=== PATIENT | male | born 1965 | race Caucasian/White ===

== ENCOUNTER 2017-06-03 13:19 | Inpatient (IN) | payer OTHER, MEDICAID ==
[2017-06-03 15:19] LABS: WHITE BLOOD COUNT 19.4 10^3/ul (4.8-10.8)
[2017-06-03 15:19] LABS: ABNORMAL IP MESSAGE 1; HEMATOCRIT 43.6 % (42.0-52.0); HEMOGLOBIN 15.2 g/dl (14.0-18.0); MEAN CORPUSCULAR HGB CONC 34.9 g/dl (32.0-37.0); MEAN CORPUSCULAR VOLUME 94.8 fl (82.0-101.0); MEAN PLATELET VOLUME 9.6 fl (7.4-10.4); NUCLEATED RED BLOOD CELLS% 0.3 /100WBC (0.0-0.0); PLATELET COUNT 221 10^3/UL (140-415); POSITIVE DIFF @See below; RED CELL DISTRIBUTION WIDTH 14.7 % (11.5-14.5)
[2017-06-03 15:22] LABS: ADD MAN DIFF? YES
[2017-06-03] MEDS: HYDROmorphONE 1 MG/ML SYG IV ×3 (15:22→22:11)
[2017-06-03] MEDS: SOD CHLORIDE 0.9% 500 ML IV (15:22)
[2017-06-03] MEDS: IODIXANOL LOCM 100 ML BTL (15:25)
[2017-06-03] MEDS: SOD CHLORIDE 0.9% 100 ML (15:25)
[2017-06-03 15:31] LABS: INR 0.91; PROTIME 12.3 Sec (11.9-14.9)
[2017-06-03 15:32] LABS: PARTIAL THROMBOPLASTIN TIME 31.9 Sec (25.0-35.0)
[2017-06-03 15:34] LABS: ANION GAP 14 (8-16); BLOOD UREA NITROGEN 12 mg/dl (7-20); CALCIUM 9.5 mg/dl (8.4-10.2); CARBON DIOXIDE 28 mmol/L (21-31); CHLORIDE 100 mmol/L (97-110); CREATININE 0.71 mg/dl (0.61-1.24); GLUCOSE 95 mg/dl (70-220); POTASSIUM 4.2 mmol/L (3.5-5.1); SODIUM 138 mmol/L (135-144)
[2017-06-03 15:39] LABS: ANISOCYTOSIS 1+ (0-0); BAND NEUTROPHILS #M 0.5 10^3/ul (0.0-0.6); BAND NEUTROPHILS % (M) 3 % (0-4); LYMPHOCYTES #M 3.2 10^3/ul (0.8-2.9); LYMPHOCYTES % (M) 17 % (15-51); MICROCYTOSIS 1+ (0-0); MONOCYTE #M 0.1 10^3/ul (0.3-0.9); MONOCYTES % (M) 1 % (0-11); MYELOCYTES #M 0.3 10^3/ul (0.0-0.0); MYELOCYTES % (M) 2 % (0-0); PLATELET ESTIMATE NORMAL; POLYCHROMASIA 1+ (0-0); REACTIVE LYMPHOCYTES #M 0.1 10^3/ul (0.0-0.0); REACTIVE LYMPHOCYTES% (M) 1 % (0-0); SEG NEUT #M 14.8 10^3/ul (1.6-7.5); SEGMENTED NEUTROPHILS (M) % 76 % (39-77); SMUDGE%M 2 % (0-0)
[2017-06-03] MEDS: PIPER-TAZO 3.375 GM IV (PMX) 100 ML IVPB (17:23)
[2017-06-03] MEDS: VANCOMYCIN 1 GM (PMX) 250 ML IVPB (17:48)
[2017-06-03] MEDS ORDERED: DEXTROSE 5%-0.45% NACL 1,000 ML IV (19:14)
[2017-06-03] MEDS ORDERED: ALBUTEROL 0.083% (NEB) 2.5 MG/3 ML AMP NEB (19:30)
[2017-06-03] MEDS ORDERED: VANCOMYCIN IV PER PHARMACY XX (19:30)
[2017-06-03] MEDS: [UNRECOGNIZED DRUG - OTHER] PO (21:00)
[2017-06-03] MEDS: GABAPENTIN 300 MG CAP PO (21:00)
[2017-06-03] MEDS: AMITRIPTYLINE 25 MG TAB PO (21:00)
[2017-06-03] MEDS: DOCUSATE SODIUM 100 MG CAP PO (21:00)
[2017-06-03] MEDS ORDERED: ENOXAPARIN 80 MG/0.8 ML SYG SC (21:00)
[2017-06-03] MEDS: FAMOTIDINE 20 MG INJ IV (21:31)
[2017-06-03] MEDS: DEXTROSE 5%-0.45% NACL 1,000 ML IV (21:31)
[2017-06-03] MEDS: CEFEPIME 2GM/50 ML (PMX) 50 ML IVPB (21:32)
[2017-06-03] MEDS: DEXAMETHASONE 4 MG/ML 1 ML INJ IV (21:32)
[2017-06-03] MEDS: LEVETIRACETAM 1000 MG (PMX) 100 ML IVPB (22:10)
[2017-06-04] MEDS: SOD CHLORIDE 0.9% 1,000 ML IV ×2 (01:46→21:00)
[2017-06-04] MEDS: HYDROmorphONE 1 MG/ML SYG IV ×4 (02:12→20:27)
[2017-06-04] MEDS: ACETAMINOPHEN 1000MG/100ML IV 100 ML IVPB (02:57)
[2017-06-04] MEDS ORDERED: hydrALAzine 20 MG INJ IV ×2 (04:30→16:30)
[2017-06-04] MEDS: VANCOMYCIN 1 GM (PMX) 250 ML IVPB ×2 (05:52→18:00)
[2017-06-04] MEDS ORDERED: SUCCINYLCHOLINE CHLORIDE 100 MG/5 ML SYG IV (07:00)
[2017-06-04] MEDS: ALBENDAZOLE 200 MG TAB PO (08:00)
[2017-06-04] MEDS: CEFEPIME 2GM/50 ML (PMX) 50 ML IVPB (09:00)
[2017-06-04] MEDS: DEXAMETHASONE 4 MG/ML 1 ML INJ IV ×3 (09:00→20:34)
[2017-06-04] MEDS: GABAPENTIN 300 MG CAP PO ×3 (09:00→21:00)
[2017-06-04] MEDS: DOCUSATE SODIUM 100 MG CAP PO ×2 (09:00→21:00)
[2017-06-04] MEDS: [UNRECOGNIZED DRUG - OTHER] PO ×2 (09:00→13:00)
[2017-06-04] MEDS: LEVETIRACETAM 1000 MG (PMX) 100 ML IVPB ×2 (09:00→23:20)
[2017-06-04] MEDS: FAMOTIDINE 20 MG INJ IV ×2 (09:00→21:32)
[2017-06-04 09:34] LABS: ADD MAN DIFF? NO
[2017-06-04 09:40] LABS: WHITE BLOOD COUNT 20.2 10^3/ul (4.8-10.8)
[2017-06-04 09:40] LABS: ABNORMAL IP MESSAGE 1; BASOPHIL # 0.1 10^3/ul (0.0-0.1); BASOPHILS % 0.5 % (0.0-2.0); EOSINOPHILS # 0.1 10^3/ul (0.0-0.5); EOSINOPHILS % 0.4 % (0.0-7.0); HEMATOCRIT 42.5 % (42.0-52.0); HEMOGLOBIN 14.7 g/dl (14.0-18.0); LYMPHOCYTES # 2.8 10^3/ul (0.8-2.9); LYMPHOCYTES % 13.8 % (15.0-51.0); MEAN CORPUSCULAR HEMOGLOBIN 32.9 pg (29.0-33.0); MEAN CORPUSCULAR HGB CONC 34.6 g/dl (32.0-37.0); MEAN CORPUSCULAR VOLUME 95.1 fl (82.0-101.0); MONOCYTE # 1.5 10^3/ul (0.3-0.9); MONOCYTES % 7.6 % (0.0-11.0); NEUTROPHIL # 14.6 10^3/ul (1.6-7.5); NEUTROPHILS % 72.3 % (39.0-77.0); NUCLEATED RED BLOOD CELLS% 0.1 /100WBC (0.0-0.0); PLATELET COUNT 185 10^3/UL (140-415); POSITIVE DIFF @See below; RED BLOOD COUNT 4.47 10^6/ul (4.70-6.10); RED CELL DISTRIBUTION WIDTH 14.9 % (11.5-14.5)
[2017-06-04 09:58] LABS: HEMOGLOBIN A1C 5.4 % (0-5.9)
[2017-06-04 10:00] LABS: ALANINE AMINOTRANSFERASE 122 IU/L (13-69); ALBUMIN 4.2 g/dl (3.3-4.9); ALBUMIN/GLOBULIN RATIO 1.55; ALKALINE PHOSPHATASE 99 IU/L (42-121); ANION GAP 13 (8-16); ASPARTATE AMINO TRANSFERASE 42 IU/L (15-46); BILIRUBIN,INDIRECT 0.3 mg/dl (0-1.1); BILIRUBIN,TOTAL 0.3 mg/dl (0.2-1.3); BLOOD UREA NITROGEN 14 mg/dl (7-20); CALCIUM 9.7 mg/dl (8.4-10.2); CARBON DIOXIDE 26 mmol/L (21-31); CHLORIDE 100 mmol/L (97-110); CREATININE 0.76 mg/dl (0.61-1.24); GLUCOSE 80 mg/dl (70-220); MAGNESIUM 2.1 mg/dl (1.7-2.5); POTASSIUM 4.1 mmol/L (3.5-5.1); SODIUM 135 mmol/L (135-144); TOTAL PROTEIN 6.9 g/dl (6.1-8.1)
[2017-06-04 10:01] LABS: CHOL/HDL RATIO 4.3 RATIO; HDL CHOLESTEROL 40 mg/dl (28-71); LDL CHOLESTEROL,CALCULATED 83 mg/dl; TRIGLYCERIDES 259 mg/dl (0-149)
[2017-06-04 10:01] LABS: CHOLESTEROL 175 mg/dl (100-200)
[2017-06-04 10:08] LABS: PROTIME 12.2 Sec (11.9-14.9)
[2017-06-04 10:11] LABS: PARTIAL THROMBOPLASTIN TIME 24.7 Sec (25.0-35.0)
[2017-06-04 11:17] LABS: ANISOCYTOSIS 1+ (0-0); BAND NEUTROPHILS #M 0.8 10^3/ul (0.0-0.6); BAND NEUTROPHILS % (M) 4 % (0-4); EOSINOPHILS % (M) 1 % (0-7); LYMPHOCYTES #M 1.2 10^3/ul (0.8-2.9); LYMPHOCYTES % (M) 6 % (15-51); METAMYELOCYTES #M 0.4 10^3/ul (0.0-0.0); METAMYELOCYTES %M 2 % (0-0); MONOCYTE #M 0.8 10^3/ul (0.3-0.9); MONOCYTES % (M) 4 % (0-11); MYELOCYTES #M 0.2 10^3/ul (0.0-0.0); MYELOCYTES % (M) 1 % (0-0); PLATELET ESTIMATE NORMAL; POLYCHROMASIA 2+ (0-0); REACTIVE LYMPHOCYTES #M 0.8 10^3/ul (0.0-0.0); REACTIVE LYMPHOCYTES% (M) 4 % (0-0); SEG NEUT #M 15.9 10^3/ul (1.6-7.5); SEGMENTED NEUTROPHILS (M) % 78 % (39-77); SMUDGE%M 2 % (0-0)
[2017-06-04] MEDS ORDERED: PROPOFOL 20 ML (14:47)
[2017-06-04] MEDS ORDERED: FENTAnyl 50 MCG/ML VIAL ×2 (14:47→14:56)
[2017-06-04] MEDS ORDERED: LIDOCAINE 100 MG SYRINGE (14:56)
[2017-06-04] MEDS ORDERED: LIDOCAINE 1%/EPI 30 ML INJ (15:09)
[2017-06-04] MEDS ORDERED: BUPIVACAINE 0.25% (MPF) 30 ML INJ (15:09)
[2017-06-04] MEDS ORDERED: GELATIN SIZE 100 SPONGE (15:09)
[2017-06-04] MEDS ORDERED: THROMBIN 5000 UNIT VIAL (15:09)
[2017-06-04] MEDS ORDERED: BACITRACIN/POLYMYXIN 28.35 GM OINT TOP (15:09)
[2017-06-04] MEDS ORDERED: LIDOCAINE 1% (MPF) 30 ML INJ (15:09)
[2017-06-04] MEDS ORDERED: HYDROmorphONE 2 MG/ML SYG ×2 (15:59→17:09)
[2017-06-04] MEDS: BACITRACIN 50000 UNITS INJ IRR (16:20)
[2017-06-04] MEDS: NEOMYC/POLYMYX/BACIT 30 GM OINT TOP (16:20)
[2017-06-04] MEDS ORDERED: VANCOMYCIN 1 GM (PMX) 250 ML (16:25)
[2017-06-04] MEDS ORDERED: METOCLOPRAMIDE 10 MG INJ IV (16:30)
[2017-06-04] MEDS ORDERED: IPRATROPIUM (NEB) 0.5 MG/2.5 ML AMP HHN (16:30)
[2017-06-04] MEDS ORDERED: DIPHENHYDRAMINE 50 MG INJ IV (16:30)
[2017-06-04] MEDS ORDERED: PROCHLORPERAZINE 10 MG INJ IV (16:30)
[2017-06-04] MEDS ORDERED: HYDROmorphONE 0.5 MG/0.5 ML SYG IV ×2 (16:30)
[2017-06-04] MEDS ORDERED: FENTAnyl 50 MCG/ML VIAL IV ×2 (16:30)
[2017-06-04] MEDS ORDERED: MIDAZOLAM 1 MG/ML 2 ML INJ IV (16:30)
[2017-06-04] MEDS ORDERED: LABETALOL HCL 20MG INJ IV (16:30)
[2017-06-04] MEDS ORDERED: ONDANSETRON 4 MG INJ IV (16:30)
[2017-06-04] MEDS ORDERED: LORAZEPAM 2 MG INJ IV (16:30)
[2017-06-04] MEDS ORDERED: HYDROmorphONE 1 MG/ML SYG IV (16:30)
[2017-06-04] MEDS ORDERED: HALOPERIDOL 5 MG INJ IV (16:30)
[2017-06-04] MEDS ORDERED: hydrALAzine 20 MG INJ (16:43)
[2017-06-04] MEDS ORDERED: ONDANSETRON 4 MG INJ (16:43)
[2017-06-04] MEDS ORDERED: LABETALOL HCL 20MG INJ (17:08)
[2017-06-04] MEDS ORDERED: BACITRACIN 50000 UNITS INJ (18:02)
[2017-06-04] MEDS: ONDANSETRON 4 MG INJ IV ×2 (20:37→22:11)
[2017-06-04] MEDS: AMITRIPTYLINE 25 MG TAB PO (21:00)
[2017-06-04] MEDS ORDERED: VANCOMYCIN IV PER PHARMACY XX (21:00)
[2017-06-05] MEDS: PIPER-TAZO 3.375 GM IV (PMX) 100 ML IVPB ×5 (00:40→23:49)
[2017-06-05] MEDS: TRIMETHOBENZAMIDE 100 MG/ML VIAL IM (00:41)
[2017-06-05] MEDS: LORAZEPAM 2 MG INJ IV ×2 (02:22→20:22)
[2017-06-05] MEDS: HYDROmorphONE 1 MG/ML SYG IV ×2 (03:40→11:07)
[2017-06-05 05:20] LABS: ADD MAN DIFF? NO
[2017-06-05 05:31] LABS: BASOPHIL # 0.1 10^3/ul (0.0-0.1); BASOPHILS % 0.3 % (0.0-2.0); HEMATOCRIT 40.8 % (42.0-52.0); HEMOGLOBIN 14.4 g/dl (14.0-18.0); LYMPHOCYTES # 1.7 10^3/ul (0.8-2.9); MEAN CORPUSCULAR HEMOGLOBIN 33.2 pg (29.0-33.0); MEAN CORPUSCULAR HGB CONC 35.3 g/dl (32.0-37.0); MEAN PLATELET VOLUME 10.1 fl (7.4-10.4); MONOCYTES % 6.4 % (0.0-11.0); NEUTROPHIL # 12.4 10^3/ul (1.6-7.5); NEUTROPHILS % 78.2 % (39.0-77.0); PLATELET COUNT 198 10^3/UL (140-415); RED BLOOD COUNT 4.34 10^6/ul (4.70-6.10); RED CELL DISTRIBUTION WIDTH 15.1 % (11.5-14.5)
[2017-06-05 05:31] LABS: WHITE BLOOD COUNT 15.8 10^3/ul (4.8-10.8)
[2017-06-05 06:12] LABS: ANION GAP 15 (8-16); BLOOD UREA NITROGEN 9 mg/dl (7-20); CALCIUM 9.2 mg/dl (8.4-10.2); CARBON DIOXIDE 26 mmol/L (21-31); CHLORIDE 100 mmol/L (97-110); CREATININE 0.66 mg/dl (0.61-1.24); GLUCOSE 112 mg/dl (70-220); POTASSIUM 3.8 mmol/L (3.5-5.1); SODIUM 137 mmol/L (135-144)
[2017-06-05] MEDS: METOCLOPRAMIDE 10 MG INJ IV (07:04)
[2017-06-05] MEDS: VANCOMYCIN 1 GM (PMX) 250 ML IVPB ×3 (07:04→22:17)
[2017-06-05] MEDS: GABAPENTIN 300 MG CAP PO ×3 (09:00→20:13)
[2017-06-05] MEDS: DOCUSATE SODIUM 100 MG CAP PO ×2 (09:00→20:13)
[2017-06-05] MEDS: FAMOTIDINE 20 MG INJ IV ×2 (09:48→20:12)
[2017-06-05] MEDS: DEXAMETHASONE 4 MG/ML 1 ML INJ IV ×2 (09:48→20:12)
[2017-06-05] MEDS: morphine 2 MG INJ IV ×2 (09:49→13:31)
[2017-06-05] MEDS: SOD CHLORIDE 0.9% 1,000 ML IV (09:55)
[2017-06-05] MEDS: LEVETIRACETAM 1000 MG (PMX) 100 ML IVPB ×2 (10:27→20:12)
[2017-06-05] MEDS: HYDROmorphONE 2 MG/ML SYG IV ×2 (17:52→20:23)
[2017-06-05] MEDS: AMITRIPTYLINE 25 MG TAB PO (20:13)
[2017-06-06] MEDS: PIPER-TAZO 3.375 GM IV (PMX) 100 ML IVPB ×3 (05:16→18:02)
[2017-06-06] MEDS: VANCOMYCIN 1 GM (PMX) 250 ML IVPB ×2 (06:00→15:28)
[2017-06-06] MEDS: morphine 2 MG INJ IV ×2 (06:39→15:03)
[2017-06-06] MEDS: HYDROmorphONE 2 MG/ML SYG IV ×2 (07:46→10:46)
[2017-06-06] MEDS: DOCUSATE SODIUM 100 MG CAP PO ×2 (09:20→21:03)
[2017-06-06] MEDS: GABAPENTIN 300 MG CAP PO ×3 (09:20→21:03)
[2017-06-06] MEDS: DEXAMETHASONE 4 MG/ML 1 ML INJ IV ×2 (09:21→21:04)
[2017-06-06] MEDS: FAMOTIDINE 20 MG INJ IV ×2 (09:30→21:19)
[2017-06-06] MEDS: LEVETIRACETAM 1000 MG (PMX) 100 ML IVPB ×2 (09:31→21:09)
[2017-06-06] MEDS: SOD CHLORIDE 0.9% 1,000 ML IV (13:11)
[2017-06-06] MEDS: HYDROmorphONE 0.5 MG/0.5 ML SYG IV ×2 (18:03→21:04)
[2017-06-06] MEDS: AMITRIPTYLINE 25 MG TAB PO (21:03)
[2017-06-06 23:21] LABS: VANCOMYCIN,TROUGH 12.7 ug/ml (10.0-20.0)
[2017-06-07] MEDS: HYDROmorphONE 0.5 MG/0.5 ML SYG IV ×8 (00:20→23:52)
[2017-06-07] MEDS: VANCOMYCIN 1 GM (PMX) 250 ML IVPB ×4 (00:20→22:05)
[2017-06-07] MEDS: PIPER-TAZO 3.375 GM IV (PMX) 100 ML IVPB ×5 (01:00→23:52)
[2017-06-07] MEDS: morphine 2 MG INJ IV ×5 (03:10→21:59)
[2017-06-07 07:16] LABS: ADD MAN DIFF? NO
[2017-06-07 07:23] LABS: WHITE BLOOD COUNT 11.6 10^3/ul (4.8-10.8)
[2017-06-07 07:23] LABS: BASOPHILS % 0.3 % (0.0-2.0); EOSINOPHILS # 0.1 10^3/ul (0.0-0.5); HEMOGLOBIN 13.4 g/dl (14.0-18.0); LYMPHOCYTES # 1.9 10^3/ul (0.8-2.9); LYMPHOCYTES % 16.1 % (15.0-51.0); MEAN CORPUSCULAR HEMOGLOBIN 32.7 pg (29.0-33.0); MEAN CORPUSCULAR HGB CONC 34.4 g/dl (32.0-37.0); MEAN CORPUSCULAR VOLUME 95.1 fl (82.0-101.0); MEAN PLATELET VOLUME 10.1 fl (7.4-10.4); MONOCYTES % 8.3 % (0.0-11.0); NEUTROPHIL # 8.5 10^3/ul (1.6-7.5); NEUTROPHILS % 72.9 % (39.0-77.0); PLATELET COUNT 173 10^3/UL (140-415); RED CELL DISTRIBUTION WIDTH 14.9 % (11.5-14.5)
[2017-06-07 07:55] LABS: ANION GAP 14 (8-16); BLOOD UREA NITROGEN 14 mg/dl (7-20); CALCIUM 9.3 mg/dl (8.4-10.2); CARBON DIOXIDE 26 mmol/L (21-31); CHLORIDE 103 mmol/L (97-110); CREATININE 0.75 mg/dl (0.61-1.24); GLUCOSE 107 mg/dl (70-220); POTASSIUM 3.6 mmol/L (3.5-5.1); SODIUM 139 mmol/L (135-144)
[2017-06-07] MEDS: DOCUSATE SODIUM 100 MG CAP PO ×2 (08:26→20:22)
[2017-06-07] MEDS: GABAPENTIN 300 MG CAP PO ×3 (08:26→20:22)
[2017-06-07] MEDS: DEXAMETHASONE 4 MG/ML 1 ML INJ IV ×2 (08:27→20:22)
[2017-06-07] MEDS: FAMOTIDINE 20 MG INJ IV ×2 (08:27→20:21)
[2017-06-07] MEDS: SOD CHLORIDE 0.9% 1,000 ML IV (08:28)
[2017-06-07] MEDS: LEVETIRACETAM 1000 MG (PMX) 100 ML IVPB ×2 (08:29→20:21)
[2017-06-07] MEDS: AMITRIPTYLINE 25 MG TAB PO (20:21)
[2017-06-08] MEDS: morphine 2 MG INJ IV ×5 (02:46→21:16)
[2017-06-08] MEDS: PIPER-TAZO 3.375 GM IV (PMX) 100 ML IVPB ×2 (05:16→12:03)
[2017-06-08] MEDS: SOD CHLORIDE 0.9% 1,000 ML IV (05:19)
[2017-06-08] MEDS: HYDROmorphONE 0.5 MG/0.5 ML SYG IV ×5 (05:35→22:08)
[2017-06-08] MEDS: VANCOMYCIN 1 GM (PMX) 250 ML IVPB ×3 (06:10→22:22)
[2017-06-08] MEDS: DEXAMETHASONE 4 MG/ML 1 ML INJ IV ×2 (08:54→21:05)
[2017-06-08] MEDS: LEVETIRACETAM 1000 MG (PMX) 100 ML IVPB ×2 (08:54→21:04)
[2017-06-08] MEDS: FAMOTIDINE 20 MG INJ IV ×2 (08:54→21:05)
[2017-06-08] MEDS: DOCUSATE SODIUM 100 MG CAP PO ×2 (08:54→21:04)
[2017-06-08] MEDS: GABAPENTIN 300 MG CAP PO ×3 (08:54→21:04)
[2017-06-08] MEDS: LORAZEPAM 2 MG INJ IV (09:49)
[2017-06-08] MEDS: LEVOFLOXACIN 500MG/D5W (PMX) 100 ML IVPB (14:51)
[2017-06-08] MEDS: AMITRIPTYLINE 25 MG TAB PO (21:04)
[2017-06-09] MEDS: HYDROmorphONE 0.5 MG/0.5 ML SYG IV ×6 (00:29→22:48)
[2017-06-09] MEDS: LORAZEPAM 2 MG INJ IV (00:53)
[2017-06-09] MEDS: SOD CHLORIDE 0.9% 1,000 ML IV ×2 (01:00→14:25)
[2017-06-09] MEDS: VANCOMYCIN 1 GM (PMX) 250 ML IVPB ×2 (06:15→16:06)
[2017-06-09 06:25] LABS: ADD MAN DIFF? NO
[2017-06-09 06:51] LABS: BASOPHILS % 0.3 % (0.0-2.0); EOSINOPHILS # 0.1 10^3/ul (0.0-0.5); EOSINOPHILS % 0.7 % (0.0-7.0); HEMATOCRIT 38.1 % (42.0-52.0); HEMOGLOBIN 13.2 g/dl (14.0-18.0); LYMPHOCYTES # 2.7 10^3/ul (0.8-2.9); LYMPHOCYTES % 26.2 % (15.0-51.0); MEAN CORPUSCULAR HGB CONC 34.6 g/dl (32.0-37.0); MEAN CORPUSCULAR VOLUME 95.3 fl (82.0-101.0); MEAN PLATELET VOLUME 10.1 fl (7.4-10.4); MONOCYTE # 0.8 10^3/ul (0.3-0.9); MONOCYTES % 7.4 % (0.0-11.0); NEUTROPHIL # 6.7 10^3/ul (1.6-7.5); NEUTROPHILS % 64.4 % (39.0-77.0); PLATELET COUNT 184 10^3/UL (140-415); RED CELL DISTRIBUTION WIDTH 14.5 % (11.5-14.5)
[2017-06-09 06:51] LABS: WHITE BLOOD COUNT 10.3 10^3/ul (4.8-10.8)
[2017-06-09 07:01] LABS: ANION GAP 13 (8-16); BLOOD UREA NITROGEN 10 mg/dl (7-20); CALCIUM 9.1 mg/dl (8.4-10.2); CARBON DIOXIDE 27 mmol/L (21-31); CHLORIDE 103 mmol/L (97-110); CREATININE 0.67 mg/dl (0.61-1.24); GLUCOSE 119 mg/dl (70-220); POTASSIUM 3.7 mmol/L (3.5-5.1); SODIUM 139 mmol/L (135-144)
[2017-06-09 07:12] LABS: BLOOD UREA NITROGEN 10 mg/dl (7-20)
[2017-06-09] MEDS: morphine 2 MG INJ IV ×2 (07:32→11:55)
[2017-06-09] MEDS: DEXAMETHASONE 4 MG/ML 1 ML INJ IV ×2 (08:21→20:44)
[2017-06-09] MEDS: FAMOTIDINE 20 MG INJ IV ×2 (08:21→20:44)
[2017-06-09] MEDS: LEVETIRACETAM 1000 MG (PMX) 100 ML IVPB ×2 (08:21→20:44)
[2017-06-09] MEDS: GABAPENTIN 300 MG CAP PO ×3 (08:21→20:44)
[2017-06-09] MEDS: DOCUSATE SODIUM 100 MG CAP PO ×2 (08:21→20:44)
[2017-06-09] MEDS: LEVOFLOXACIN 500MG/D5W (PMX) 100 ML IVPB (14:25)
[2017-06-09 14:56] LABS: VANCOMYCIN,TROUGH 11.3 ug/ml (10.0-20.0)
[2017-06-09] MEDS: morphine LIQ (10 MG/5 ML) CUP PO (17:33)
[2017-06-09] MEDS: AMITRIPTYLINE 25 MG TAB PO (20:44)
[2017-06-09] MEDS: VANCOMYCIN 1.25 GM in SOD CHLORIDE 0.9% 250 ML IVPB (23:00)
[2017-06-10] MEDS: HYDROmorphONE 0.5 MG/0.5 ML SYG IV ×4 (01:01→20:43)
[2017-06-10 06:24] LABS: ADD MAN DIFF? NO; BASOPHILS % 0.3 % (0.0-2.0); EOSINOPHILS % 0.4 % (0.0-7.0); HEMATOCRIT 37.2 % (42.0-52.0); HEMOGLOBIN 13.2 g/dl (14.0-18.0); LYMPHOCYTES # 2.9 10^3/ul (0.8-2.9); LYMPHOCYTES % 25.9 % (15.0-51.0); MEAN CORPUSCULAR HEMOGLOBIN 33.6 pg (29.0-33.0); MEAN CORPUSCULAR HGB CONC 35.5 g/dl (32.0-37.0); MEAN CORPUSCULAR VOLUME 94.7 fl (82.0-101.0); MEAN PLATELET VOLUME 9.8 fl (7.4-10.4); MONOCYTE # 0.7 10^3/ul (0.3-0.9); MONOCYTES % 6.4 % (0.0-11.0); NEUTROPHIL # 7.4 10^3/ul (1.6-7.5); NEUTROPHILS % 65.5 % (39.0-77.0); PLATELET COUNT 189 10^3/UL (140-415); RED BLOOD COUNT 3.93 10^6/ul (4.70-6.10); RED CELL DISTRIBUTION WIDTH 14.7 % (11.5-14.5)
[2017-06-10 06:24] LABS: WHITE BLOOD COUNT 11.3 10^3/ul (4.8-10.8)
[2017-06-10] MEDS: LEVETIRACETAM 1000 MG (PMX) 100 ML IVPB (08:21)
[2017-06-10] MEDS: VANCOMYCIN 1.25 GM in SOD CHLORIDE 0.9% 250 ML IVPB ×2 (08:25→15:52)
[2017-06-10] MEDS: FAMOTIDINE 20 MG INJ IV ×2 (08:25→20:43)
[2017-06-10] MEDS: DOCUSATE SODIUM 100 MG CAP PO ×2 (08:25→20:39)
[2017-06-10] MEDS: GABAPENTIN 300 MG CAP PO ×3 (08:25→20:39)
[2017-06-10] MEDS: DEXAMETHASONE 4 MG/ML 1 ML INJ IV ×2 (08:26→20:39)
[2017-06-10] MEDS: LEVOFLOXACIN 500MG/D5W (PMX) 100 ML IVPB (14:16)
[2017-06-10] MEDS: SOD CHLORIDE 0.9% 1,000 ML IV (17:00)
[2017-06-10] MEDS: LEVETIRACETAM 500 MG TAB PO (20:39)
[2017-06-10] MEDS: AMITRIPTYLINE 25 MG TAB PO (20:39)
[2017-06-11] MEDS: VANCOMYCIN 1.25 GM in SOD CHLORIDE 0.9% 250 ML IVPB ×3 (00:02→16:43)
[2017-06-11] MEDS: HYDROmorphONE 0.5 MG/0.5 ML SYG IV ×5 (00:02→19:50)
[2017-06-11] MEDS: LORAZEPAM 2 MG INJ IV (00:49)
[2017-06-11 06:47] LABS: ADD MAN DIFF? NO
[2017-06-11 06:50] LABS: WHITE BLOOD COUNT 13.4 10^3/ul (4.8-10.8)
[2017-06-11 06:50] LABS: BASOPHIL # 0.1 10^3/ul (0.0-0.1); BASOPHILS % 0.4 % (0.0-2.0); EOSINOPHILS % 0.1 % (0.0-7.0); HEMOGLOBIN 13.5 g/dl (14.0-18.0); LYMPHOCYTES # 2.9 10^3/ul (0.8-2.9); LYMPHOCYTES % 21.5 % (15.0-51.0); MEAN CORPUSCULAR HEMOGLOBIN 33.6 pg (29.0-33.0); MEAN CORPUSCULAR HGB CONC 35.5 g/dl (32.0-37.0); MEAN CORPUSCULAR VOLUME 94.5 fl (82.0-101.0); MEAN PLATELET VOLUME 9.6 fl (7.4-10.4); MONOCYTE # 0.7 10^3/ul (0.3-0.9); MONOCYTES % 5.3 % (0.0-11.0); NEUTROPHIL # 9.4 10^3/ul (1.6-7.5); NEUTROPHILS % 70.3 % (39.0-77.0); PLATELET COUNT 207 10^3/UL (140-415); RED BLOOD COUNT 4.02 10^6/ul (4.70-6.10); RED CELL DISTRIBUTION WIDTH 14.6 % (11.5-14.5)
[2017-06-11 07:20] LABS: VANCOMYCIN,TROUGH 16.5 ug/ml (10.0-20.0)
[2017-06-11 07:23] LABS: ANION GAP 12 (8-16); BLOOD UREA NITROGEN 11 mg/dl (7-20); CALCIUM 9.6 mg/dl (8.4-10.2); CARBON DIOXIDE 26 mmol/L (21-31); CHLORIDE 102 mmol/L (97-110); CREATININE 0.62 mg/dl (0.61-1.24); GLUCOSE 102 mg/dl (70-220); MAGNESIUM 1.9 mg/dl (1.7-2.5); PHOSPHORUS 4.5 mg/dl (2.5-4.9); POTASSIUM 3.8 mmol/L (3.5-5.1); SODIUM 136 mmol/L (135-144)
[2017-06-11] MEDS: FAMOTIDINE 20 MG INJ IV ×2 (09:28→20:00)
[2017-06-11] MEDS: LEVETIRACETAM 500 MG TAB PO ×2 (09:28→20:00)
[2017-06-11] MEDS: DOCUSATE SODIUM 100 MG CAP PO ×2 (09:28→20:00)
[2017-06-11] MEDS: DEXAMETHASONE 4 MG/ML 1 ML INJ IV ×2 (09:30→20:00)
[2017-06-11] MEDS: GABAPENTIN 300 MG CAP PO ×3 (09:40→20:00)
[2017-06-11 11:54] LABS: ERYTHROCYTE SEDIMENTATION RATE 9 mm/Hr (0-15)
[2017-06-11] MEDS: SOD CHLORIDE 0.9% 1,000 ML IV (13:00)
[2017-06-11] MEDS: LEVOFLOXACIN 500MG/D5W (PMX) 100 ML IVPB (14:44)
[2017-06-11] MEDS: morphine LIQ (10 MG/5 ML) CUP PO (16:41)
[2017-06-11] MEDS: AMITRIPTYLINE 25 MG TAB PO (20:00)
== END 2017-06-11 22:10 | disposition home health service (06) | DRG 856 ==
LOC: TEL 06-07 00:08 → E/R 13:19 → REC 19:16 → ICU 06-04 17:35
PROC: 00930ZX Drainage of Intracranial Epidural Space, Open Approach, Diagnostic (ICD-10-PCS; principal; 2017-06-04 15:30)
PROC: 06H03DZ Insertion of Intraluminal Device into Inferior Vena Cava, Percutaneous Approach (ICD-10-PCS; 2017-06-04 15:35)
DX: T81.4XXA Infection following a procedure, initial encounter (principal); I26.99 Other pulmonary embolism without acute cor pulmonale; G93.6 Cerebral edema; G06.0 Intracranial abscess and granuloma; T81.32XA Disruption of internal operation (surgical) wound, not elsewhere classified, initial encounter; C71.8 Malignant neoplasm of overlapping sites of brain; R47.01 Aphasia; R56.9 Unspecified convulsions; Y83.8 Other surgical procedures as the cause of abnormal reaction of the patient, or of later complication, without mention of misadventure at the time of the procedure; Y92.238 Other place in hospital as the place of occurrence of the external cause
CPT/HCPCS: 36415; 70450; 70470; 70553; 80048; 80053; 80061; 80202; 83036; 83735; 84100; 84443; 84520; 85025; 85610; 85651; 85730; 86850; 86900; 86901; 87070; 87081; 87102; 87116; 96374; 96375; 96376; 97110; 97116; 97161; 97530; 99291-25

== ENCOUNTER 2017-06-27 21:52 | Inpatient (IN) | payer OTHER ==
[2017-06-28] MEDS: SOD CHLORIDE 0.9% 500 ML IV (03:23)
[2017-06-28 04:11] LABS: ABNORMAL IP MESSAGE 1; HEMATOCRIT 43.8 % (42.0-52.0); HEMOGLOBIN 15.2 g/dl (14.0-18.0); MEAN CORPUSCULAR HEMOGLOBIN 33.6 pg (29.0-33.0); MEAN CORPUSCULAR HGB CONC 34.7 g/dl (32.0-37.0); MEAN CORPUSCULAR VOLUME 96.7 fl (82.0-101.0); MEAN PLATELET VOLUME 9.5 fl (7.4-10.4); NUCLEATED RED BLOOD CELLS% 0.1 /100WBC (0.0-0.0); PLATELET COUNT 122 10^3/UL (140-415); POSITIVE DIFF @See below; RED BLOOD COUNT 4.53 10^6/ul (4.70-6.10); RED CELL DISTRIBUTION WIDTH 14.5 % (11.5-14.5)
[2017-06-28 04:11] LABS: WHITE BLOOD COUNT 16.3 10^3/ul (4.8-10.8)
[2017-06-28 04:15] LABS: ADD MAN DIFF? YES
[2017-06-28 04:30] LABS: INR 0.92; PROTIME 12.4 Sec (11.9-14.9)
[2017-06-28 04:31] LABS: PARTIAL THROMBOPLASTIN TIME 22.4 Sec (25.0-35.0)
[2017-06-28 04:34] LABS: ALANINE AMINOTRANSFERASE 94 IU/L (13-69); ALBUMIN/GLOBULIN RATIO 1.73; ALKALINE PHOSPHATASE 107 IU/L (42-121); ANION GAP 17 (8-16); ASPARTATE AMINO TRANSFERASE 57 IU/L (15-46); BILIRUBIN,INDIRECT 0.3 mg/dl (0-1.1); BILIRUBIN,TOTAL 0.3 mg/dl (0.2-1.3); BLOOD UREA NITROGEN 19 mg/dl (7-20); CALCIUM 9.5 mg/dl (8.4-10.2); CARBON DIOXIDE 27 mmol/L (21-31); CHLORIDE 98 mmol/L (97-110); CREATININE 0.56 mg/dl (0.61-1.24); GLUCOSE 101 mg/dl (70-220); POTASSIUM 4.6 mmol/L (3.5-5.1); SODIUM 137 mmol/L (135-144); TOTAL PROTEIN 6.3 g/dl (6.1-8.1)
[2017-06-28 04:36] LABS: AMMONIA 11 umol/l (9-30)
[2017-06-28 04:38] LABS: ACETAMINOPHEN < 10.0 ug/ml (10.0-30.0); ETHANOL < 10.0 mg/dl; SALICYLATE < 1.0 mg/dl (5.0-30.0)
[2017-06-28 05:11] LABS: ANISOCYTOSIS 2+ (0-0); BAND NEUTROPHILS #M 1.7 10^3/ul (0.0-0.6); BAND NEUTROPHILS % (M) 11 % (0-4); EOSINOPHILS % (M) 1 % (0-7); LYMPHOCYTES #M 1.7 10^3/ul (0.8-2.9); LYMPHOCYTES % (M) 11 % (15-51); MICROCYTOSIS 2+ (0-0); MONOCYTE #M 0.3 10^3/ul (0.3-0.9); MONOCYTES % (M) 2 % (0-11); MYELOCYTES #M 0.4 10^3/ul (0.0-0.0); MYELOCYTES % (M) 3 % (0-0); PLATELET ESTIMATE DECREASED; POLYCHROMASIA 3+ (0-0); SEGMENTED NEUTROPHILS (M) % 72 % (39-77); SMUDGE%M 4 % (0-0)
[2017-06-28] MEDS: ONDANSETRON 4 MG INJ IV ×2 (05:12→07:51)
[2017-06-28] MEDS: morphine 4 MG/ML VIAL IV (05:12)
[2017-06-28 05:33] LABS: ADD UMIC YES; UR ASCORBIC ACID 20 mg/dL (NEGATIVE); UR BILIRUBIN (Dip) NEGATIVE (NEGATIVE); UR BLOOD (Dip) 1+ mg/dL (NEGATIVE); UR CLARITY CLEAR (CLEAR); UR COLOR YELLOW (YELLOW); UR GLUCOSE (Dip) NEGATIVE (NEGATIVE); UR KETONES (Dip) NEGATIVE (NEGATIVE); UR LEUKOCYTE ESTERASE (Dip) NEGATIVE Leu/ul (NEGATIVE); UR NITRITE (Dip) NEGATIVE (NEGATIVE); UR RBC 4 /HPF (0-5); UR SPECIFIC GRAVITY (Dip) 1.009 (1.003-1.030); UR TOTAL PROTEIN (Dip) NEGATIVE (NEGATIVE); UR UROBILINOGEN (Dip) NEGATIVE (NEGATIVE); UR WBC 1 /HPF (0-5)
[2017-06-28 05:49] LABS: AMPHETAMINE/METHAMPHETAMINE Negative (NEGATIVE); BARBITURATES Negative (NEGATIVE); BENZODIAZEPINES Negative (NEGATIVE); CANNABINOIDS Negative (NEGATIVE); COCAINE Negative (NEGATIVE); OPIATES Negative (NEGATIVE)
[2017-06-28] MEDS ORDERED: NACL 0.9% 3 ML SYG IV (07:00)
[2017-06-28] MEDS: LEVOFLOXACIN 750MG/D5W (PMX) 150 ML IVPB ×2 (07:50→13:03)
[2017-06-28] MEDS: SOD CHLORIDE 0.9% 1,000 ML IV ×2 (07:50→23:31)
[2017-06-28] MEDS: HYDROmorphONE 0.5 MG/0.5 ML SYG IV (07:51)
[2017-06-28] MEDS: HYDROmorphONE 1 MG/ML SYG IV (07:51)
[2017-06-28] MEDS: VANCOMYCIN 1 GM (PMX) 250 ML IVPB (10:08)
[2017-06-28] MEDS ORDERED: VANCOMYCIN IV PER PHARMACY XX (12:00)
[2017-06-28] MEDS: GABAPENTIN 300 MG CAP PO ×2 (12:46→20:47)
[2017-06-28] MEDS: MAGNESIUM OXIDE 400 MG TAB PO ×2 (12:46→20:47)
[2017-06-28] MEDS: MULTIVITAMINS THERAPEUTIC TAB PO (12:46)
[2017-06-28] MEDS: LEVETIRACETAM 500 MG TAB PO ×2 (12:47→20:47)
[2017-06-28] MEDS: DOCUSATE SODIUM 100 MG CAP PO ×2 (12:48→20:47)
[2017-06-28] MEDS: morphine 2 MG INJ IV ×2 (14:02→21:08)
[2017-06-28] MEDS: ACETAMINOPHEN 325 MG TAB PO (14:08)
[2017-06-28] MEDS: VANCOMYCIN 1.25 GM in SOD CHLORIDE 0.9% 250 ML IVPB (18:15)
[2017-06-28] MEDS: DEXAMETHASONE 1 MG TAB PO (20:00)
[2017-06-28] MEDS: ENOXAPARIN 80 MG/0.8 ML SYG SC (20:48)
[2017-06-29] MEDS: morphine 2 MG INJ IV ×3 (01:06→09:43)
[2017-06-29] MEDS: ZOLPIDEM 5 MG TAB PO (01:53)
[2017-06-29] MEDS: VANCOMYCIN 1.25 GM in SOD CHLORIDE 0.9% 250 ML IVPB ×2 (02:00→10:46)
[2017-06-29 06:45] LABS: WHITE BLOOD COUNT 10.3 10^3/ul (4.8-10.8)
[2017-06-29 06:45] LABS: ABNORMAL IP MESSAGE 1; HEMATOCRIT 43.3 % (42.0-52.0); HEMOGLOBIN 14.5 g/dl (14.0-18.0); MEAN CORPUSCULAR HEMOGLOBIN 33.5 pg (29.0-33.0); MEAN CORPUSCULAR HGB CONC 33.5 g/dl (32.0-37.0); MEAN PLATELET VOLUME 9.1 fl (7.4-10.4); PLATELET COUNT 102 10^3/UL (140-415); POSITIVE DIFF @See below; RED BLOOD COUNT 4.33 10^6/ul (4.70-6.10); RED CELL DISTRIBUTION WIDTH 14.4 % (11.5-14.5)
[2017-06-29 07:07] LABS: ADD MAN DIFF? YES
[2017-06-29 07:18] LABS: ALBUMIN/GLOBULIN RATIO 1.41; ANION GAP 15 (8-16)
[2017-06-29 07:24] LABS: ALANINE AMINOTRANSFERASE 129 IU/L (13-69); ALBUMIN 3.4 g/dl (3.3-4.9); ALKALINE PHOSPHATASE 87 IU/L (42-121); ASPARTATE AMINO TRANSFERASE 55 IU/L (15-46); BILIRUBIN,INDIRECT 0.4 mg/dl (0-1.1); BILIRUBIN,TOTAL 0.4 mg/dl (0.2-1.3); BLOOD UREA NITROGEN 18 mg/dl (7-20); CALCIUM 8.7 mg/dl (8.4-10.2); CARBON DIOXIDE 27 mmol/L (21-31); CHLORIDE 99 mmol/L (97-110); GLUCOSE 104 mg/dl (70-220); MAGNESIUM 2.2 mg/dl (1.7-2.5); POTASSIUM 4.1 mmol/L (3.5-5.1); SODIUM 137 mmol/L (135-144); TOTAL PROTEIN 5.8 g/dl (6.1-8.1)
[2017-06-29] MEDS: MULTIVITAMINS THERAPEUTIC TAB PO (08:16)
[2017-06-29] MEDS: DEXAMETHASONE 1 MG TAB PO ×2 (08:16→17:52)
[2017-06-29] MEDS: LEVETIRACETAM 500 MG TAB PO ×2 (08:16→21:33)
[2017-06-29] MEDS: MAGNESIUM OXIDE 400 MG TAB PO ×2 (08:16→21:34)
[2017-06-29] MEDS: DOCUSATE SODIUM 100 MG CAP PO ×2 (08:16→21:34)
[2017-06-29] MEDS: GABAPENTIN 300 MG CAP PO ×3 (08:16→21:34)
[2017-06-29] MEDS: ENOXAPARIN 80 MG/0.8 ML SYG SC ×2 (08:33→21:55)
[2017-06-29 09:29] LABS: ANISOCYTOSIS 1+ (0-0); BAND NEUTROPHILS #M 1.1 10^3/ul (0.0-0.6); BAND NEUTROPHILS % (M) 11 % (0-4); LYMPHOCYTES #M 2.2 10^3/ul (0.8-2.9); LYMPHOCYTES % (M) 22 % (15-51); METAMYELOCYTES #M 0.1 10^3/ul (0.0-0.0); METAMYELOCYTES %M 1 % (0-0); MICROCYTOSIS 1+ (0-0); MONOCYTE #M 0.1 10^3/ul (0.3-0.9); MONOCYTES % (M) 1 % (0-11); PLATELET ESTIMATE NORMAL; POLYCHROMASIA 2+ (0-0); REACTIVE LYMPHOCYTES #M 0.1 10^3/ul (0.0-0.0); REACTIVE LYMPHOCYTES% (M) 1 % (0-0); SEG NEUT #M 6.7 10^3/ul (1.6-7.5); SEGMENTED NEUTROPHILS (M) % 64 % (39-77); SMUDGE%M 9 % (0-0)
[2017-06-29] MEDS: POLYETHYLENE GLYCOL 17 GM PACKET PO (15:26)
[2017-06-29] MEDS: HYDROmorphONE 0.5 MG/0.5 ML SYG IV ×2 (15:26→20:19)
[2017-06-29] MEDS: SOD CHLORIDE 0.9% 1,000 ML IV (15:30)
[2017-06-30] MEDS: HYDROmorphONE 0.5 MG/0.5 ML SYG IV ×6 (00:08→22:08)
[2017-06-30] MEDS: ZOLPIDEM 5 MG TAB PO ×2 (00:08→23:39)
[2017-06-30 07:34] LABS: ADD MAN DIFF? NO
[2017-06-30 07:43] LABS: WHITE BLOOD COUNT 14.2 10^3/ul (4.8-10.8)
[2017-06-30 07:43] LABS: BASOPHILS % 0.2 % (0.0-2.0); EOSINOPHILS % 0.1 % (0.0-7.0); HEMATOCRIT 43.1 % (42.0-52.0); HEMOGLOBIN 14.9 g/dl (14.0-18.0); LYMPHOCYTES # 2.1 10^3/ul (0.8-2.9); LYMPHOCYTES % 14.6 % (15.0-51.0); MEAN CORPUSCULAR HEMOGLOBIN 33.8 pg (29.0-33.0); MEAN CORPUSCULAR HGB CONC 34.6 g/dl (32.0-37.0); MEAN CORPUSCULAR VOLUME 97.7 fl (82.0-101.0); MEAN PLATELET VOLUME 9.6 fl (7.4-10.4); MONOCYTE # 0.7 10^3/ul (0.3-0.9); MONOCYTES % 4.7 % (0.0-11.0); NEUTROPHIL # 10.7 10^3/ul (1.6-7.5); NEUTROPHILS % 75.4 % (39.0-77.0); PLATELET COUNT 109 10^3/UL (140-415); RED BLOOD COUNT 4.41 10^6/ul (4.70-6.10); RED CELL DISTRIBUTION WIDTH 14.1 % (11.5-14.5)
[2017-06-30 07:58] LABS: ANION GAP 15 (8-16); BLOOD UREA NITROGEN 14 mg/dl (7-20); CALCIUM 9.2 mg/dl (8.4-10.2); CARBON DIOXIDE 26 mmol/L (21-31); CHLORIDE 98 mmol/L (97-110); CREATININE 0.64 mg/dl (0.61-1.24); GLUCOSE 89 mg/dl (70-220); POTASSIUM 3.9 mmol/L (3.5-5.1); SODIUM 135 mmol/L (135-144)
[2017-06-30] MEDS: SOD CHLORIDE 0.9% 1,000 ML IV (08:51)
[2017-06-30] MEDS: POLYETHYLENE GLYCOL 17 GM PACKET PO (08:52)
[2017-06-30] MEDS: MULTIVITAMINS THERAPEUTIC TAB PO (08:53)
[2017-06-30] MEDS: MAGNESIUM OXIDE 400 MG TAB PO ×2 (08:54→21:49)
[2017-06-30] MEDS: DEXAMETHASONE 1 MG TAB PO (08:54)
[2017-06-30] MEDS: DOCUSATE SODIUM 100 MG CAP PO ×2 (08:54→21:49)
[2017-06-30] MEDS: LEVETIRACETAM 500 MG TAB PO ×2 (08:54→21:48)
[2017-06-30] MEDS: GABAPENTIN 300 MG CAP PO ×3 (08:54→21:49)
[2017-06-30] MEDS: ENOXAPARIN 80 MG/0.8 ML SYG SC ×2 (09:33→21:51)
[2017-06-30] MEDS: DEXAMETHASONE 2 MG TAB PO (21:49)
[2017-07-01] MEDS: SOD CHLORIDE 0.9% 1,000 ML IV ×3 (01:31→18:11)
[2017-07-01] MEDS: LEVOFLOXACIN 250 MG TAB PO ×2 (05:10→05:17)
[2017-07-01] MEDS: HYDROmorphONE 0.5 MG/0.5 ML SYG IV ×3 (05:11→12:17)
[2017-07-01] MEDS: DOCUSATE SODIUM 100 MG CAP PO ×2 (08:29→20:41)
[2017-07-01] MEDS: GABAPENTIN 300 MG CAP PO ×3 (08:30→20:41)
[2017-07-01] MEDS: LEVETIRACETAM 500 MG TAB PO ×2 (08:30→20:41)
[2017-07-01] MEDS: MULTIVITAMINS THERAPEUTIC TAB PO (08:30)
[2017-07-01] MEDS: POLYETHYLENE GLYCOL 17 GM PACKET PO (08:31)
[2017-07-01] MEDS: DEXAMETHASONE 2 MG TAB PO ×3 (08:31→20:41)
[2017-07-01] MEDS: MAGNESIUM OXIDE 400 MG TAB PO ×2 (08:31→20:41)
[2017-07-01] MEDS: ENOXAPARIN 80 MG/0.8 ML SYG SC ×2 (08:40→20:45)
[2017-07-01] MEDS: HYDROCODONE/APAP (5/325) TAB PO ×2 (16:04→23:26)
[2017-07-01] MEDS: ONDANSETRON 4 MG INJ IV (22:20)
[2017-07-02] MEDS: HYDROCODONE/APAP (5/325) TAB PO ×2 (07:23→19:33)
[2017-07-02] MEDS: LEVOFLOXACIN 250 MG TAB PO (07:23)
[2017-07-02] MEDS: DOCUSATE SODIUM 100 MG CAP PO ×2 (08:22→20:56)
[2017-07-02] MEDS: LEVETIRACETAM 500 MG TAB PO ×2 (08:22→20:56)
[2017-07-02] MEDS: MULTIVITAMINS THERAPEUTIC TAB PO (08:22)
[2017-07-02] MEDS: POLYETHYLENE GLYCOL 17 GM PACKET PO (08:23)
[2017-07-02] MEDS: MAGNESIUM OXIDE 400 MG TAB PO ×2 (08:23→20:56)
[2017-07-02] MEDS: GABAPENTIN 300 MG CAP PO ×3 (08:23→20:56)
[2017-07-02] MEDS: DEXAMETHASONE 2 MG TAB PO ×3 (08:23→20:56)
[2017-07-02] MEDS: ENOXAPARIN 80 MG/0.8 ML SYG SC ×2 (08:44→20:54)
[2017-07-02 09:22] LABS: ADD MAN DIFF? NO
[2017-07-02 09:28] LABS: ABNORMAL IP MESSAGE 1; BASOPHILS % 0.2 % (0.0-2.0); EOSINOPHILS % 0.1 % (0.0-7.0); HEMATOCRIT 41.6 % (42.0-52.0); LYMPHOCYTES # 2.1 10^3/ul (0.8-2.9); LYMPHOCYTES % 18.7 % (15.0-51.0); MEAN CORPUSCULAR HEMOGLOBIN 33.6 pg (29.0-33.0); MEAN CORPUSCULAR HGB CONC 33.7 g/dl (32.0-37.0); MEAN CORPUSCULAR VOLUME 99.8 fl (82.0-101.0); MEAN PLATELET VOLUME 9.5 fl (7.4-10.4); MONOCYTE # 0.6 10^3/ul (0.3-0.9); MONOCYTES % 5.3 % (0.0-11.0); NEUTROPHIL # 7.8 10^3/ul (1.6-7.5); NEUTROPHILS % 70.9 % (39.0-77.0); PLATELET COUNT 98 10^3/UL (140-415); POSITIVE DIFF @See below; RED BLOOD COUNT 4.17 10^6/ul (4.70-6.10); RED CELL DISTRIBUTION WIDTH 14.1 % (11.5-14.5)
[2017-07-02 09:51] LABS: ALANINE AMINOTRANSFERASE 77 IU/L (13-69); ALBUMIN 3.4 g/dl (3.3-4.9); ALBUMIN/GLOBULIN RATIO 1.54; ALKALINE PHOSPHATASE 112 IU/L (42-121); ANION GAP 13 (8-16); ASPARTATE AMINO TRANSFERASE 23 IU/L (15-46); BILIRUBIN,INDIRECT 0.3 mg/dl (0-1.1); BILIRUBIN,TOTAL 0.3 mg/dl (0.2-1.3); BLOOD UREA NITROGEN 12 mg/dl (7-20); CALCIUM 8.8 mg/dl (8.4-10.2); CARBON DIOXIDE 30 mmol/L (21-31); CHLORIDE 101 mmol/L (97-110); GLUCOSE 84 mg/dl (70-220); POTASSIUM 4.2 mmol/L (3.5-5.1); SODIUM 140 mmol/L (135-144); TOTAL PROTEIN 5.6 g/dl (6.1-8.1)
[2017-07-02] MEDS: SOD CHLORIDE 0.9% 1,000 ML IV (12:17)
[2017-07-02] MEDS: ZOLPIDEM 5 MG TAB PO (23:21)
[2017-07-03] MEDS: SOD CHLORIDE 0.9% 1,000 ML IV ×2 (03:31→13:01)
[2017-07-03] MEDS: HYDROCODONE/APAP (5/325) TAB PO ×4 (05:45→15:04)
[2017-07-03] MEDS: LEVOFLOXACIN 250 MG TAB PO (06:00)
[2017-07-03] MEDS: POLYETHYLENE GLYCOL 17 GM PACKET PO (08:24)
[2017-07-03] MEDS: MAGNESIUM OXIDE 400 MG TAB PO (08:26)
[2017-07-03] MEDS: LEVETIRACETAM 500 MG TAB PO (08:26)
[2017-07-03] MEDS: DOCUSATE SODIUM 100 MG CAP PO (08:26)
[2017-07-03] MEDS: DEXAMETHASONE 2 MG TAB PO ×2 (08:26→12:55)
[2017-07-03] MEDS: MULTIVITAMINS THERAPEUTIC TAB PO (08:26)
[2017-07-03] MEDS: GABAPENTIN 300 MG CAP PO ×2 (08:26→12:55)
[2017-07-03] MEDS: ENOXAPARIN 80 MG/0.8 ML SYG SC (08:27)
[2017-07-03] MEDS ORDERED: DEXAMETHASONE 2 MG TAB PO (21:00)
[2017-07-07] MEDS ORDERED: DEXAMETHASONE 2 MG TAB PO (09:00)
== END 2017-07-03 17:21 | disposition home or self-care (01) | DRG 694 ==
LOC: E/R 21:52 → TEL 06-28 05:46
DX: N20.0 Calculus of kidney (principal); D69.6 Thrombocytopenia, unspecified; G93.89 Other specified disorders of brain; Z86.73 Personal history of transient ischemic attack (TIA), and cerebral infarction without residual deficits; Z86.711 Personal history of pulmonary embolism; Z72.0 Tobacco use; Z79.52 Long term (current) use of systemic steroids; D72.829 Elevated white blood cell count, unspecified
CPT/HCPCS: 36415; 70450; 70553; 71045; 76775; 80048; 80053; 80306; 80307; 81001; 82140; 83735; 85025; 85610; 85730; 87040; 87086; 93005; 96361; 96365; 96366; 96367; 96375; 96376; 99285-25

== ENCOUNTER 2018-01-18 11:53 | Emergency (ER) | payer OTHER ==
[2018-01-18] MEDS ORDERED: METHYLPRED. NA SUCC 250 MG in DEXTROSE 5% 50 ML IM (13:00)
[2018-01-18] MEDS: METHYLPRED. NA SUCC 250 MG in DEXTROSE 5% 50 ML IV (13:21)
[2018-01-18] MEDS: DEXAMETHASONE 10 MG/ML 1 ML INJ IM (13:25)
== END 2018-01-18 14:57 | disposition home or self-care (01) ==
LOC: FTE 11:53
DX: L23.9 Allergic contact dermatitis, unspecified cause (principal); Z79.4 Long term (current) use of insulin
CPT/HCPCS: 96372; 99284-25

== ENCOUNTER 2018-06-24 16:29 | Inpatient (IN) | payer OTHER ==
[2018-06-24 16:57] LABS: ADD MAN DIFF? NO
[2018-06-24] MEDS: SOD CHLORIDE 0.9% 1,000 ML IV (16:57)
[2018-06-24 16:59] LABS: WHITE BLOOD COUNT 6.3 10^3/ul (4.8-10.8)
[2018-06-24 16:59] LABS: BASOPHILS % 0.5 % (0.0-2.0); EOSINOPHILS # 0.1 10^3/ul (0.0-0.5); EOSINOPHILS % 1.9 % (0.0-7.0); HEMATOCRIT 47.4 % (42.0-52.0); HEMOGLOBIN 16.2 g/dl (14.0-18.0); LYMPHOCYTES # 2.2 10^3/ul (0.8-2.9); LYMPHOCYTES % 34.9 % (15.0-51.0); MEAN CORPUSCULAR HEMOGLOBIN 30.9 pg (29.0-33.0); MEAN CORPUSCULAR HGB CONC 34.2 g/dl (32.0-37.0); MEAN CORPUSCULAR VOLUME 90.3 fl (82.0-101.0); MEAN PLATELET VOLUME 10.2 fl (7.4-10.4); MONOCYTE # 0.5 10^3/ul (0.3-0.9); MONOCYTES % 8.3 % (0.0-11.0); NEUTROPHIL # 3.4 10^3/ul (1.6-7.5); NEUTROPHILS % 53.9 % (39.0-77.0); PLATELET COUNT 194 10^3/UL (140-415); RED BLOOD COUNT 5.25 10^6/ul (4.70-6.10); RED CELL DISTRIBUTION WIDTH 12.2 % (11.5-14.5)
[2018-06-24 17:17] LABS: INR 0.99; PROTIME 13.2 Sec (11.9-14.9)
[2018-06-24 17:20] LABS: ANION GAP 13 (5-13); BLOOD UREA NITROGEN 11 mg/dl (7-20); CALCIUM 9.7 mg/dl (8.4-10.2); CARBON DIOXIDE 25 mmol/L (21-31); CHLORIDE 105 mmol/L (97-110); CREATININE 1.02 mg/dl (0.61-1.24); Estimated GFR > 60 mL/min (>60); GLUCOSE 103 mg/dl (70-220); POTASSIUM 4.1 mmol/L (3.5-5.1); SODIUM 143 mmol/L (135-144)
[2018-06-24] MEDS: DEXAMETHASONE 10 MG/ML 1 ML INJ IV (17:51)
[2018-06-24] MEDS: ONDANSETRON 4 MG INJ IV (17:51)
[2018-06-24] MEDS: PROCHLORPERAZINE 10 MG INJ IV (17:51)
[2018-06-24] MEDS ORDERED: ACETAMINOPHEN 325 MG TAB PO ×2 (18:00→21:30)
[2018-06-24] MEDS: VALPROATE INJ 500 MG in SOD CHLORIDE 0.9% 50 ML IVPB (18:19)
[2018-06-24] MEDS ORDERED: LORAZEPAM 2 MG INJ IV (21:30)
[2018-06-24] MEDS ORDERED: ALBUTEROL/IPRATROPIUM (NEB) 3 ML AMP HHN (21:30)
[2018-06-24] MEDS ORDERED: ONDANSETRON 4 MG INJ IV (21:30)
[2018-06-24] MEDS ORDERED: NACL 0.9% 3 ML SYG IV (21:30)
[2018-06-24] MEDS: ZOLPIDEM 5 MG TAB PO (22:59)
[2018-06-25] MEDS: HYDROCODONE/APAP (5/325) TAB PO (04:53)
[2018-06-25 06:21] LABS: ADD MAN DIFF? NO
[2018-06-25 06:39] LABS: BASOPHILS % 0.1 % (0.0-2.0); HEMATOCRIT 48.3 % (42.0-52.0); HEMOGLOBIN 16.8 g/dl (14.0-18.0); LYMPHOCYTES # 1.3 10^3/ul (0.8-2.9); LYMPHOCYTES % 10.7 % (15.0-51.0); MEAN CORPUSCULAR HGB CONC 34.8 g/dl (32.0-37.0); MEAN CORPUSCULAR VOLUME 89.1 fl (82.0-101.0); MEAN PLATELET VOLUME 10.9 fl (7.4-10.4); MONOCYTE # 0.3 10^3/ul (0.3-0.9); MONOCYTES % 2.5 % (0.0-11.0); NEUTROPHIL # 10.5 10^3/ul (1.6-7.5); NEUTROPHILS % 86.4 % (39.0-77.0); PLATELET COUNT 230 10^3/UL (140-415); RED BLOOD COUNT 5.42 10^6/ul (4.70-6.10); RED CELL DISTRIBUTION WIDTH 12.1 % (11.5-14.5)
[2018-06-25 06:39] LABS: WHITE BLOOD COUNT 12.1 10^3/ul (4.8-10.8)
[2018-06-25 07:18] LABS: ALANINE AMINOTRANSFERASE 83 IU/L (13-69); ALBUMIN 4.9 g/dl (3.3-4.9); ALBUMIN/GLOBULIN RATIO 1.68; ALKALINE PHOSPHATASE 108 IU/L (42-121); ANION GAP 16 (5-13); ASPARTATE AMINO TRANSFERASE 67 IU/L (15-46); BILIRUBIN,INDIRECT 0.3 mg/dl (0-1.1); BILIRUBIN,TOTAL 0.3 mg/dl (0.2-1.3); BLOOD UREA NITROGEN 13 mg/dl (7-20); CALCIUM 9.9 mg/dl (8.4-10.2); CARBON DIOXIDE 22 mmol/L (21-31); CHLORIDE 104 mmol/L (97-110); CREATININE 0.86 mg/dl (0.61-1.24); Estimated GFR > 60 mL/min (>60); GLUCOSE 156 mg/dl (70-220); POTASSIUM 4.3 mmol/L (3.5-5.1); SODIUM 142 mmol/L (135-144); TOTAL PROTEIN 7.8 g/dl (6.1-8.1)
[2018-06-25] MEDS: GABAPENTIN 300 MG CAP PO ×3 (08:34→20:44)
[2018-06-25] MEDS: MAGNESIUM OXIDE 400 MG TAB PO ×2 (08:34→20:44)
[2018-06-25] MEDS: DOCUSATE SODIUM 100 MG CAP PO ×2 (08:34→20:43)
[2018-06-25] MEDS: LEVETIRACETAM 500 MG TAB PO (08:34)
[2018-06-25] MEDS: FAMOTIDINE 20 MG TAB PO ×2 (08:34→20:44)
[2018-06-25] MEDS: MULTIVITAMINS THERAPEUTIC TAB PO (08:34)
[2018-06-25] MEDS: AMITRIPTYLINE 50 MG TAB PO (20:43)
[2018-06-25] MEDS: LEVETIRACETAM 750 MG TAB PO (20:44)
[2018-06-25] MEDS: IBUPROFEN 600 MG TAB PO (23:02)
[2018-06-26 05:07] LABS: ADD MAN DIFF? NO
[2018-06-26 05:25] LABS: WHITE BLOOD COUNT 9.7 10^3/ul (4.8-10.8)
[2018-06-26 05:25] LABS: BASOPHIL # 0.1 10^3/ul (0.0-0.1); BASOPHILS % 0.6 % (0.0-2.0); EOSINOPHILS # 0.1 10^3/ul (0.0-0.5); EOSINOPHILS % 0.6 % (0.0-7.0); HEMOGLOBIN 16.2 g/dl (14.0-18.0); LYMPHOCYTES # 4.2 10^3/ul (0.8-2.9); LYMPHOCYTES % 43.2 % (15.0-51.0); MEAN CORPUSCULAR HEMOGLOBIN 31.3 pg (29.0-33.0); MEAN CORPUSCULAR HGB CONC 34.5 g/dl (32.0-37.0); MEAN CORPUSCULAR VOLUME 90.9 fl (82.0-101.0); MEAN PLATELET VOLUME 10.8 fl (7.4-10.4); MONOCYTE # 0.8 10^3/ul (0.3-0.9); MONOCYTES % 8.7 % (0.0-11.0); NEUTROPHIL # 4.5 10^3/ul (1.6-7.5); NEUTROPHILS % 46.5 % (39.0-77.0); PLATELET COUNT 216 10^3/UL (140-415); RED BLOOD COUNT 5.17 10^6/ul (4.70-6.10); RED CELL DISTRIBUTION WIDTH 12.2 % (11.5-14.5)
[2018-06-26 05:50] LABS: ALANINE AMINOTRANSFERASE 61 IU/L (13-69); ALBUMIN 4.5 g/dl (3.3-4.9); ALBUMIN/GLOBULIN RATIO 1.66; ALKALINE PHOSPHATASE 100 IU/L (42-121); ANION GAP 14 (5-13); ASPARTATE AMINO TRANSFERASE 58 IU/L (15-46); BILIRUBIN,INDIRECT 0.2 mg/dl (0-1.1); BILIRUBIN,TOTAL 0.2 mg/dl (0.2-1.3); BLOOD UREA NITROGEN 18 mg/dl (7-20); CALCIUM 9.5 mg/dl (8.4-10.2); CARBON DIOXIDE 26 mmol/L (21-31); CHLORIDE 103 mmol/L (97-110); CREATININE 1.01 mg/dl (0.61-1.24); Estimated GFR > 60 mL/min (>60); GLUCOSE 89 mg/dl (70-220); MAGNESIUM 2.4 mg/dl (1.7-2.5); PHOSPHORUS 4.1 mg/dl (2.5-4.9); POTASSIUM 3.9 mmol/L (3.5-5.1); SODIUM 143 mmol/L (135-144); TOTAL PROTEIN 7.2 g/dl (6.1-8.1)
[2018-06-26] MEDS: MULTIVITAMINS THERAPEUTIC TAB PO (09:33)
[2018-06-26] MEDS: DOCUSATE SODIUM 100 MG CAP PO (09:34)
[2018-06-26] MEDS: FAMOTIDINE 20 MG TAB PO (09:34)
[2018-06-26] MEDS: GABAPENTIN 300 MG CAP PO ×2 (09:34→13:17)
[2018-06-26] MEDS: MAGNESIUM OXIDE 400 MG TAB PO (09:34)
[2018-06-26] MEDS: HYDROCODONE/APAP (5/325) TAB PO (09:37)
[2018-06-26] MEDS: LEVETIRACETAM 750 MG TAB PO (10:19)
[2018-06-26 14:13] LABS: ADD UMIC NO; UR ASCORBIC ACID NEGATIVE (NEGATIVE); UR BILIRUBIN (Dip) NEGATIVE (NEGATIVE); UR BLOOD (Dip) NEGATIVE (NEGATIVE); UR CLARITY CLEAR (CLEAR); UR COLOR YELLOW (YELLOW); UR GLUCOSE (Dip) NEGATIVE (NEGATIVE); UR KETONES (Dip) NEGATIVE (NEGATIVE); UR LEUKOCYTE ESTERASE (Dip) NEGATIVE Leu/ul (NEGATIVE); UR NITRITE (Dip) NEGATIVE (NEGATIVE); UR SPECIFIC GRAVITY (Dip) 1.009 (1.003-1.030); UR TOTAL PROTEIN (Dip) NEGATIVE (NEGATIVE); UR UROBILINOGEN (Dip) NEGATIVE (NEGATIVE)
[2018-06-26 14:33] LABS: AMPHETAMINE/METHAMPHETAMINE NEGATIVE (NEGATIVE); BARBITURATES NEGATIVE (NEGATIVE); BENZODIAZEPINES NEGATIVE (NEGATIVE); CANNABINOIDS NEGATIVE (NEGATIVE); COCAINE NEGATIVE (NEGATIVE); OPIATES NEGATIVE (NEGATIVE)
== END 2018-06-26 17:00 | disposition home or self-care (01) | DRG 100 ==
LOC: E/R 16:29 → MS1 06-25 21:47 → TEL 17:42
DX: G40.909 Epilepsy, unspecified, not intractable, without status epilepticus (principal); G93.6 Cerebral edema; B69.0 Cysticercosis of central nervous system; G93.89 Other specified disorders of brain; F41.9 Anxiety disorder, unspecified; Z87.442 Personal history of urinary calculi; Z86.711 Personal history of pulmonary embolism; Z87.891 Personal history of nicotine dependence; Z95.828 Presence of other vascular implants and grafts
CPT/HCPCS: 36415; 71045; 80048; 80053; 80307; 81003; 83735; 84100; 84403; 85025; 85610; 87081; 93005; 97161; 99285-25

== ENCOUNTER 2018-12-06 18:26 | Inpatient (IN) | payer OTHER ==
[2018-12-06 19:46] LABS: ADD MAN DIFF? NO
[2018-12-06 19:50] LABS: BASOPHIL # 0.1 10^3/ul (0.0-0.1); BASOPHILS % 0.5 % (0.0-2.0); EOSINOPHILS # 0.2 10^3/ul (0.0-0.5); EOSINOPHILS % 1.8 % (0.0-7.0); HEMATOCRIT 51.4 % (42.0-52.0); HEMOGLOBIN 17.6 g/dl (14.0-18.0); LYMPHOCYTES # 3.3 10^3/ul (0.8-2.9); LYMPHOCYTES % 35.2 % (15.0-51.0); MEAN CORPUSCULAR HEMOGLOBIN 30.7 pg (29.0-33.0); MEAN CORPUSCULAR HGB CONC 34.2 g/dl (32.0-37.0); MEAN CORPUSCULAR VOLUME 89.5 fl (82.0-101.0); MEAN PLATELET VOLUME 10.9 fl (7.4-10.4); MONOCYTE # 0.8 10^3/ul (0.3-0.9); MONOCYTES % 8.2 % (0.0-11.0); NEUTROPHILS % 53.9 % (39.0-77.0); PLATELET COUNT 181 10^3/UL (140-415); RED BLOOD COUNT 5.74 10^6/ul (4.70-6.10)
[2018-12-06 19:50] LABS: WHITE BLOOD COUNT 9.3 10^3/ul (4.8-10.8)
[2018-12-06 20:06] LABS: INR 0.98; PROTIME 13.1 Sec (11.9-14.9)
[2018-12-06 20:07] LABS: PARTIAL THROMBOPLASTIN TIME 33.9 Sec (23.0-35.0)
[2018-12-06 20:08] LABS: ALANINE AMINOTRANSFERASE 49 IU/L (13-69); ALBUMIN 4.5 g/dl (3.3-4.9); ALKALINE PHOSPHATASE 91 IU/L (42-121); ANION GAP 10 (5-13); ASPARTATE AMINO TRANSFERASE 32 IU/L (15-46); BILIRUBIN,INDIRECT 0.5 mg/dl (0-1.1); BILIRUBIN,TOTAL 0.5 mg/dl (0.2-1.3); BLOOD UREA NITROGEN 15 mg/dl (7-20); CALCIUM 9.3 mg/dl (8.4-10.2); CARBON DIOXIDE 23 mmol/L (21-31); CHLORIDE 108 mmol/L (97-110); CREATININE 0.98 mg/dl (0.61-1.24); Estimated GFR > 60 mL/min (>60); GLUCOSE 89 mg/dl (70-220); LIPASE 75 U/L (23-300); SODIUM 141 mmol/L (135-144); TOTAL PROTEIN 7.5 g/dl (6.1-8.1)
[2018-12-06] MEDS: ONDANSETRON 4 MG INJ IV (20:16)
[2018-12-06] MEDS: SOD CHLORIDE 0.9% 1,000 ML IV (20:16)
[2018-12-06] MEDS: HYDROmorphONE 1 MG/ML SYG IV (20:17)
[2018-12-06 20:18] LABS: ADD UMIC NO; UR ASCORBIC ACID 40 mg/dL (NEGATIVE); UR BILIRUBIN (Dip) NEGATIVE (NEGATIVE); UR BLOOD (Dip) NEGATIVE (NEGATIVE); UR CLARITY CLEAR (CLEAR); UR COLOR YELLOW (YELLOW); UR GLUCOSE (Dip) NEGATIVE (NEGATIVE); UR KETONES (Dip) NEGATIVE (NEGATIVE); UR LEUKOCYTE ESTERASE (Dip) NEGATIVE Leu/ul (NEGATIVE); UR NITRITE (Dip) NEGATIVE (NEGATIVE); UR SPECIFIC GRAVITY (Dip) 1.021 (1.003-1.030); UR TOTAL PROTEIN (Dip) NEGATIVE (NEGATIVE); UR UROBILINOGEN (Dip) NEGATIVE (NEGATIVE)
[2018-12-06 20:20] LABS: TROPONIN-I < 0.012 ng/ml (0.000-0.120)
[2018-12-06] MEDS: IOHEXOL 100 ML (20:32)
[2018-12-06] MEDS: SOD CHLORIDE 0.9% 100 ML (20:32)
[2018-12-06] MEDS ORDERED: ACETAMINOPHEN 650MG/20.3ML CUP PO (23:00)
[2018-12-06] MEDS ORDERED: ALBUTEROL/IPRATROPIUM (NEB) 3 ML AMP NEB (23:00)
[2018-12-06] MEDS ORDERED: ONDANSETRON 4 MG INJ IV (23:00)
[2018-12-06] MEDS: DEXTROSE 5%-0.45% NACL 1,000 ML IV (23:46)
[2018-12-06] MEDS: FAMOTIDINE 20 MG INJ IV (23:47)
[2018-12-06] MEDS: LEVETIRACETAM 750 MG TAB PO (23:47)
[2018-12-06] MEDS: morphine 4 MG/ML VIAL IV (23:47)
[2018-12-06] MEDS: GABAPENTIN 300 MG CAP PO (23:48)
[2018-12-07] MEDS: HYDROCODONE/APAP (5/325) TAB PO (04:20)
[2018-12-07] MEDS ORDERED: HYDROCODONE/APAP (5/325) TAB PO (04:30)
[2018-12-07] MEDS ORDERED: ACETAMINOPHEN 500 MG TAB PO (04:30)
[2018-12-07 05:28] LABS: ADD MAN DIFF? NO
[2018-12-07 05:30] LABS: WHITE BLOOD COUNT 8.2 10^3/ul (4.8-10.8)
[2018-12-07 05:30] LABS: BASOPHILS % 0.4 % (0.0-2.0); EOSINOPHILS # 0.1 10^3/ul (0.0-0.5); EOSINOPHILS % 1.6 % (0.0-7.0); HEMATOCRIT 47.9 % (42.0-52.0); HEMOGLOBIN 16.6 g/dl (14.0-18.0); LYMPHOCYTES # 3.2 10^3/ul (0.8-2.9); LYMPHOCYTES % 39.2 % (15.0-51.0); MEAN CORPUSCULAR HEMOGLOBIN 31.2 pg (29.0-33.0); MEAN CORPUSCULAR HGB CONC 34.7 g/dl (32.0-37.0); MONOCYTE # 0.6 10^3/ul (0.3-0.9); MONOCYTES % 7.3 % (0.0-11.0); NEUTROPHIL # 4.2 10^3/ul (1.6-7.5); NEUTROPHILS % 51.1 % (39.0-77.0); PLATELET COUNT 169 10^3/UL (140-415); RED BLOOD COUNT 5.32 10^6/ul (4.70-6.10); RED CELL DISTRIBUTION WIDTH 12.9 % (11.5-14.5)
[2018-12-07] MEDS ORDERED: PANTOPRAZOLE 40 MG INJ IV (06:00)
[2018-12-07 06:05] LABS: ALANINE AMINOTRANSFERASE 104 IU/L (13-69); ALKALINE PHOSPHATASE 84 IU/L (42-121); ANION GAP 7 (5-13); ASPARTATE AMINO TRANSFERASE 142 IU/L (15-46); BILIRUBIN,INDIRECT 0.8 mg/dl (0-1.1); BILIRUBIN,TOTAL 0.8 mg/dl (0.2-1.3); BLOOD UREA NITROGEN 12 mg/dl (7-20); CALCIUM 8.5 mg/dl (8.4-10.2); CARBON DIOXIDE 26 mmol/L (21-31); CHLORIDE 106 mmol/L (97-110); Estimated GFR > 60 mL/min (>60); GLUCOSE 90 mg/dl (70-220); POTASSIUM 3.9 mmol/L (3.5-5.1); SODIUM 139 mmol/L (135-144); TOTAL PROTEIN 6.5 g/dl (6.1-8.1)
[2018-12-07] MEDS: FAMOTIDINE 20 MG INJ IV (09:42)
[2018-12-07] MEDS: LEVETIRACETAM 750 MG TAB PO ×2 (09:42→20:08)
[2018-12-07] MEDS: DEXTROSE 5%-0.45% NACL 1,000 ML IV (11:09)
[2018-12-07] MEDS: MULTIVITAMINS THERAPEUTIC TAB PO (11:33)
[2018-12-07] MEDS: HYDROmorphONE 2 MG TAB PO ×2 (13:20→22:37)
[2018-12-07] MEDS: GABAPENTIN 300 MG CAP PO ×2 (13:23→20:09)
[2018-12-07] MEDS ORDERED: MAGNESIUM HYDROXIDE 30ML CUP PO (20:30)
[2018-12-07] MEDS: FAMOTIDINE 20 MG TAB PO (20:44)
[2018-12-07] MEDS: DOCUSATE SODIUM 100 MG CAP PO (20:44)
[2018-12-08] MEDS: HYDROCODONE/APAP (5/325) TAB PO (01:33)
[2018-12-08] MEDS: DEXTROSE 5%-0.45% NACL 1,000 ML IV (01:36)
[2018-12-08 06:40] LABS: ADD MAN DIFF? NO
[2018-12-08 06:54] LABS: WHITE BLOOD COUNT 7.6 10^3/ul (4.8-10.8)
[2018-12-08 06:54] LABS: BASOPHIL # 0.1 10^3/ul (0.0-0.1); BASOPHILS % 0.8 % (0.0-2.0); EOSINOPHILS # 0.2 10^3/ul (0.0-0.5); EOSINOPHILS % 2.5 % (0.0-7.0); HEMATOCRIT 50.2 % (42.0-52.0); HEMOGLOBIN 17.1 g/dl (14.0-18.0); LYMPHOCYTES # 3.1 10^3/ul (0.8-2.9); MEAN CORPUSCULAR HEMOGLOBIN 31.3 pg (29.0-33.0); MEAN CORPUSCULAR HGB CONC 34.1 g/dl (32.0-37.0); MEAN CORPUSCULAR VOLUME 91.9 fl (82.0-101.0); MEAN PLATELET VOLUME 11.2 fl (7.4-10.4); MONOCYTE # 0.5 10^3/ul (0.3-0.9); MONOCYTES % 7.1 % (0.0-11.0); NEUTROPHIL # 3.7 10^3/ul (1.6-7.5); NEUTROPHILS % 48.2 % (39.0-77.0); PLATELET COUNT 173 10^3/UL (140-415); RED BLOOD COUNT 5.46 10^6/ul (4.70-6.10); RED CELL DISTRIBUTION WIDTH 12.9 % (11.5-14.5)
[2018-12-08 07:22] LABS: MAGNESIUM 2.1 mg/dl (1.7-2.5)
[2018-12-08 07:22] LABS: PHOSPHORUS 3.9 mg/dl (2.5-4.9)
[2018-12-08 07:26] LABS: ANION GAP 9 (5-13); BLOOD UREA NITROGEN 10 mg/dl (7-20); CALCIUM 8.8 mg/dl (8.4-10.2); CARBON DIOXIDE 26 mmol/L (21-31); CHLORIDE 104 mmol/L (97-110); CREATININE 0.97 mg/dl (0.61-1.24); Estimated GFR > 60 mL/min (>60); GLUCOSE 100 mg/dl (70-220); SODIUM 139 mmol/L (135-144)
[2018-12-08] MEDS: FAMOTIDINE 20 MG TAB PO (08:48)
[2018-12-08] MEDS: LEVETIRACETAM 750 MG TAB PO (08:48)
[2018-12-08] MEDS: GABAPENTIN 300 MG CAP PO ×2 (08:49→12:37)
[2018-12-08] MEDS: MULTIVITAMINS THERAPEUTIC TAB PO (08:49)
== END 2018-12-08 17:45 | disposition home or self-care (01) | DRG 919 ==
LOC: ICU 22:46 → 6WM 12-08 00:48 → E/R 18:26
DX: G97.61 Postprocedural hematoma of a nervous system organ or structure following a nervous system procedure (principal); I61.9 Nontraumatic intracerebral hemorrhage, unspecified; Y84.8 Other medical procedures as the cause of abnormal reaction of the patient, or of later complication, without mention of misadventure at the time of the procedure; Y92.019 Unspecified place in single-family (private) house as the place of occurrence of the external cause; M54.42 Lumbago with sciatica, left side; G89.29 Other chronic pain; G40.909 Epilepsy, unspecified, not intractable, without status epilepticus
CPT/HCPCS: 36415; 70450; 70545; 70551; 71275; 75635; 80048; 80053; 81003; 83690; 83735; 84100; 84484; 85025; 85610; 85730; 92610; 93005; 95819; 96374; 96375; 97165; 99285-25